=== PATIENT | male | born 1990 | race Caucasian/White ===

== ENCOUNTER 2017-04-25 20:26 | Emergency (ER) | payer OTHER ==
[2017-04-25 20:36] VITALS: BMI 39.1
[2017-04-25] MEDS ORDERED: ASPIRIN 81 MG CHEWABLE TABLETS PO ONE (21:13)
[2017-04-25] MEDS ORDERED: METOPROLOL TARTRATE 25 MG TABLET (FP) PO ONE (21:14)
[2017-04-25] MEDS ORDERED: ASPIRIN 81 MG CHEWABLE TABLETS ONE (21:28)
[2017-04-25] MEDS ORDERED: METOPROLOL TARTRATE 25 MG TABLET (FP) ONE (21:29)
[2017-04-25 22:01] LABS: BASOPHIL 0.3 % (0-2.0); EOSINOPHIL 0.7 % (0-4.5); MCH 28.3 pg (25.7-33.7); MCHC 33.1 g/dl (32.0-35.9); MEAN CELL VOLUME 85.3 fl (80-96); MEAN PLT VOLUME 8.4 fl (7.5-11.1); NEUTROPHILS 79.1 % (42.8-82.8); PLATELET COUNT 218 K/MM3 (134-434); WHITE BLOOD COUNT 12.4 K/mm3 (4.0-10.0)
--- NOTE | 2017-04-25 22:04 | PDOC ---
History of Present Illness - General History Source: Patient Exam Limitations: No Limitations <Nanette Pierce - Last Filed: 04/25/17 22:08> <Raissa Thomas - Last Filed: 04/26/17 02:17> - General Chief Complaint: Syncope/Near Syncope Stated Complaint: SYNCOPE Time Seen by Provider: 04/25/17 20:41 - History of Present Illness Initial Comments: The patient is a 26 yo M with a past medical history significant for spinal surgery on L5S1 who presents s/p brief witnessed syncopal episode. Patient states he stood up from a chair and suddenly felt flushed and dizzy and collapsed back into the chair. He states he felt everything go black. The patient also endorses associated nausea and diaphoresis. The patient denies vomiting, diarrhea and abdominal pain. He denies chest pain and palpitations. As per patients family, patient worked 120 hours this week. Patient denies SOB. Patient admits to abusing Adderall to stay awake. Allergies: NKDA Dr. Rosalie Castillo Family Hx: Dad has DM (Nanette Pierce) Past History <Nanette Pierce - Last Filed: 04/25/17 22:08> - Past Medical History Other medical history: ADHD - Immunization History Immunization Up to Date: Yes - Psycho/Social/Smoking Cessation Hx Suicidal Ideation: No Smoking History: Never smoked Have you smoked in the past 12 months: No Information on smoking cessation initiated: No Hx Alcohol Use: No Drug/Substance Use Hx: No Substance Use Type: None <Raissa Thomas - Last Filed: 04/26/17 02:17> - Past Medical History Allergies/Adverse Reactions: Allergies Allergy/AdvReac Type Severity Reaction Status Date / Time No Known Allergies Allergy Verified 04/25/17 20:32 Home Medications: Ambulatory Orders Dextroamphetamine/Amphetamine [Adderall Xr 30 mg Capsule] 30 mg PO DAILY Review of Systems - Review of Systems Able to Perform ROS?: Yes <Nanette Pierce - Last Filed: 04/25/17 22:08> <Raissa Thomas - Last Filed: 04/26/17 02:17> - Review of Systems Comments:: CONSTITUTIONAL: +diaphoresis Absent: fever, chills, generalized weakness, malaise, loss of appetite HEENT: Absent: rhinorrhea, nasal congestion, throat pain, throat swelling, difficulty swallowing, mouth swelling, ear pain, eye pain, visual Changes CARDIOVASCULAR: Absent: chest pain, syncope, palpitations, irregular heart rate, lightheadedness , peripheral edema RESPIRATORY: Absent: cough, shortness of breath, dyspnea with exertion, orthopnea, wheezing, stridor, hemoptysis GASTROINTESTINAL: Absent: abdominal pain, abdominal distension, nausea, vomiting, diarrhea, constipation, melena, hematochezia GENITOURINARY: Absent: dysuria, frequency, urgency, hesitancy, hematuria, flank pain, genital pain MUSCULOSKELETAL: Absent: myalgia, arthralgia, joint swelling SKIN: Absent: rash, itching, pallor HEMATOLOGIC/IMMUNOLOGIC: Absent: easy bleeding, easy bruising, lymphadenopathy, frequent infections ENDOCRINE: Absent: unexplained weight gain, unexplained weight loss, heat intolerance, cold intolerance NEUROLOGIC: +syncopal episode Absent: headache, focal weakness or paresthesias, dizziness, unsteady gait, seizure, mental status changes, bladder or bowel incontinence PSYCHIATRIC: Absent: anxiety, depression, suicidal or homicidal ideation, hallucinations. (Nanette Pierce) *Physical Exam <Nanette Pierce - Last Filed: 04/25/17 22:08> <Raissa Thomas - Last Filed: 04/26/17 02:17> - Vital Signs Last Vital Signs Temp Pulse Resp BP Pulse Ox 97.9 F 105 H 20 140/91 100 04/25/17 20:34 04/25/17 23:48 04/25/17 21:57 04/25/17 23:48 04/25/17 21:57 - Physical Exam Comments: GENERAL: Well developed, well nourished. Awake and alert. No acute distress. HEENT: Normocephalic, atraumatic. PERRLA, EOMI. No conjunctival pallor. Sclera are non- icteric. Moist mucous membranes. Oropharynx is clear. NECK: Supple. Full ROM. No JVD. Carotid pulses 2+ and symmetric, without bruits. No thyromegaly. No lymphadenopathy. CARDIOVASCULAR: Tachycardic. Regular rhythm. No murmurs, rubs, or gallops. Distal pulses are 2+ and symmetric. PULMONARY: No evidence of respiratory distress. Lungs clear to auscultation bilaterally. No wheezing, rales or rhonchi. ABDOMINAL: Soft. Obese. Non-tender. Non-distended. No rebound or guarding. No organomegaly. Normoactive bowel sounds. MUSCULOSKELETAL Normal range of motion at all joints. No bony deformities or tenderness. No CVA tenderness. EXTREMITIES: No cyanosis. No clubbing. No edema. No calf tenderness. SKIN: Warm and dry. Normal capillary refill. No rashes. No jaundice. NEUROLOGICAL: Alert, awake, appropriate. Cranial nerves 2-12 intact. No deficits to light touch and temperature in face, upper extremities and lower extremities. No motor deficits in the in face, upper extremities and lower extremities. Normoreflexic in the upper and lower extremities. Normal speech. Toes are down-going bilaterally. Gait is normal without ataxia. PSYCHIATRIC: Cooperative. Good eye contact. Appropriate mood and affect. (Nanette Pierce) ED Treatment Course - LABORATORY CBC & Chemistry Diagram: 04/25/17 21:50 04/25/17 21:50 <Nanette Pierce - Last Filed: 04/25/17 22:08> - LABORATORY CBC & Chemistry Diagram: 04/25/17 21:50 04/25/17 21:50 <Raissa Thomas - Last Filed: 04/26/17 02:17> - ADDITIONAL ORDERS Additional order review: Laboratory Results 04/25/17 04/25/17 04/25/17 22:00 21:50 21:50 INR D-Dimer < 200 Sodium 138 Potassium 4.3 Chloride 103 Carbon Dioxide 27 Anion Gap 8 BUN 21 H Creatinine 1.0 Creat Clearance w eGFR > 60 Random Glucose 103 Calcium 9.0 Magnesium 2.0 Total Bilirubin 0.4 AST 22 ALT 68 Alkaline Phosphatase 67 Creatine Kinase 127 Troponin I < 0.02 Total Protein 7.5 Albumin 4.2 Urine Color Ltyellow Urine Appearance Clear Urine pH 6.0 Urine Protein Negative Urine Glucose (UA) Negative Urine Ketones Trace H Urine Blood Negative Urine Nitrite Negative Urine Bilirubin Negative Urine Urobilinogen Negative Ur Leukocyte Esterase Negative 04/25/17 21:50 INR 1.14 D-Dimer Sodium Potassium Chloride Carbon Dioxide Anion Gap BUN Creatinine Creat Clearance w eGFR Random Glucose Calcium Magnesium Total Bilirubin AST ALT Alkaline Phosphatase Creatine Kinase Troponin I Total Protein Albumin Urine Color Urine Appearance Urine pH Urine Protein Urine Glucose (UA) Urine Ketones Urine Blood Urine Nitrite Urine Bilirubin Urine Urobilinogen Ur Leukocyte Esterase 04/25/17 21:50 RBC 4.98 MCV 85.3 MCHC 33.1 RDW 13.0 MPV 8.4 Neutrophils % 79.1 Lymphocytes % 14.9 Monocytes % 5.0 Eosinophils % 0.7 Basophils % 0.3 - RADIOLOGY Radiology Studies Ordered: Category Date Time Status CHEST PA & LAT [RAD] Stat Radiology 04/25/17 21:13 Taken - Medications Given in the ED: ED Medications Discontinued Medications Generic Name Dose Route Start Last Admin Trade Name Justin PRN Reason Stop Dose Admin Aspirin 162 mg 04/25/17 21:13 04/25/17 21:25 Asa - PO 04/25/17 21:14 162 mg ONCE ONE Administration Sodium Chloride 500 mls @ 500 mls/hr 04/25/17 22:28 04/25/17 22:33 Normal Saline - IV 04/25/17 23:27 500 mls/hr ASDIR STA Administration Metoprolol Tartrate 25 mg 04/25/17 21:14 04/25/17 21:25 Lopressor - PO 04/25/17 21:15 25 mg ONCE ONE Administration Metoprolol Tartrate 5 mg 04/25/17 23:46 04/25/17 23:48 Lopressor Injection - IVPUSH 04/25/17 23:47 5 mg ONCE ONE Administration Medical Decision Making <Nanette Pierce - Last Filed: 04/25/17 22:08> <Raissa Thomas - Last Filed: 04/26/17 02:17> - Medical Decision Making 04/26/17 02:12 26-year-old male was working and had a brief syncopal episode that lasted a few seconds. He says he was seated and then felt dizzy and kind of flushed. He stood up and then he states he fell back into his chair. He denies any shortness of breath. He denies any chest pain. He did not have any slurred speech, facial droop, extremity weakness. -he presented with heart rate in 110-120 He has been taking Adderall 30 mg every day and has not had sleeping. He said he is worked 100 hours this past week labs reviewed, unremarkable. -pt received lopressor for [id number] IMP -adverse rxn to adderall,lack of sleep - (Raissa Thomas) *DC/Admit/Observation/Transfer <Nanette Pierce - Last Filed: 04/25/17 22:08> <Raissa Thomas - Last Filed: 04/26/17 02:17> Diagnosis at time of Disposition: Tachycardia, Vaso vagal episode - Discharge Dispostion Disposition: HOME Condition at time of disposition: Stable - Referrals Referrals: Rosalie Soto [Primary Care Provider] - - Patient Instructions Printed Discharge Instructions: DI for Syncope in Adults (Fainting) Additional Instructions: please followup with your regular physician. You should have an ECHO with a agitator operator SLEEP!! Eat properly. - Attestations Scribe Attestion: Documentation prepared by Nanette Pierce, acting as medical technologist prn for Raissa Thomas MD/. (Nanette Pierce)
[2017-04-25 22:07] LABS: URINE APPEARANCE CLEAR; URINE BILIRUBIN NEGATIVE (NEGATIVE); URINE BLOOD NEGATIVE (NEGATIVE); URINE COLOR LTYELLOW; URINE GLUCOSE (UA) NEGATIVE (NEGATIVE); URINE KETONE TRACE (NEGATIVE); URINE LEUK ESTERASE NEGATIVE (NEGATIVE); URINE NITRITE NEGATIVE (NEGATIVE); URINE PROTEIN NEGATIVE (NEGATIVE); URINE UROBILINOGEN NEGATIVE mg/dL (0.2-1.0)
[2017-04-25 22:12] LABS: INR 1.14 (0.82-1.09); PROTHROMBIN TIME (PATIENT) 12.6 SEC (9.98-11.88)
[2017-04-25 22:24] LABS: ALBUMIN 4.2 g/dl (3.4-5.0); ANION GAP 8 (8-16); BILIRUBIN,TOTAL 0.4 mg/dL (0.2-1.0); CO2 27 mmol/L (21-32); GLUCOSE,RANDOM 103 mg/dL (74-106); SGOT/AST 22 U/L (15-37); SGPT/ALT 68 U/L (12-78); TOT PROT 7.5 g/dl (6.4-8.2)
[2017-04-25 22:26] LABS: ALK PHOS 67 U/L (45-117); TROPONIN I < 0.02 ng/ml (0.00-0.05)
[2017-04-25] MEDS ORDERED: SODIUM CHLORIDE 500 ML IV STA (22:28)
[2017-04-25] MEDS ORDERED: METOPROLOL TARTRATE 5 MG/5 ML VIAL IVPUSH ONE (23:46)
[2017-04-25] MEDS ORDERED: METOPROLOL TARTRATE 5 MG/5 ML VIAL ONE (23:50)
[2017-04-26 05:11] VITALS: BP 136/93; PULSE 92; TEMP 98.7
--- NOTE | 2017-04-26 20:29 | EKG ---
Test Reason : Blood Pressure : / mmHG Vent. Rate : 107 BPM Atrial Rate : 107 BPM P-R Int : 142 ms QRS Dur : 094 ms QT Int : 346 ms P-R-T Axes : 042 068 024 degrees QTc Int : 461 ms SINUS TACHYCARDIA PROBABLE ATRIAL ABNORMALITY NO PREVIOUS ECGS AVAILABLE REPEAT EKG IF CLINICALLY INDICATED Confirmed by BRUNA COSTELLO MD ([id number]) on 04/26/2017 8:29:39 PM Referred By: Confirmed By:BRUNA COSTELLO MD
== END 2017-04-26 01:05 | disposition home or self-care (01) ==
LOC: JER 20:26
PROC: 3E0337Z Introduction of Electrolytic and Water Balance Substance into Peripheral Vein, Percutaneous Approach (ICD-10-PCS; principal; 2017-04-25)
PROC: 3E033GC Introduction of Other Therapeutic Substance into Peripheral Vein, Percutaneous Approach (ICD-10-PCS; 2017-04-25)
DX: R00.0 Tachycardia, unspecified (principal); R55 Syncope and collapse; R03.0 Elevated blood-pressure reading, without diagnosis of hypertension; F90.9 Attention-deficit hyperactivity disorder, unspecified type
CPT/HCPCS: 36415; 71020-TC; 80053; 81003; 82550; 83735; 84484; 85025; 85379; 85610; 93005; 93010; 99284-25

== ENCOUNTER 2019-02-28 00:27 | Emergency (ER) | payer SELFPAY, OTHER | END 2019-02-28 03:00 | disposition home or self-care (01) | LOC: JER 00:27 ==